=== PATIENT | male | born 1935 | race Caucasian/White ===

== ENCOUNTER 2024-02-06 16:10 | Emergency (ER) | payer MEDICARE, SELFPAY ==
[2024-02-06 16:12] VITALS: BP 163/79; PULSE 84; RESP 18; TEMP 36.2; O2SAT 94; BMI 28.7
--- NOTE | 2024-02-06 16:51 | EKG12_ITS ---
Test Reason : GENERAL Blood Pressure : / mmHG Vent. Rate : 076 BPM Atrial Rate : 076 BPM P-R Int : 230 ms QRS Dur : 102 ms QT Int : 402 ms P-R-T Axes : 056 -43 065 degrees QTc Int : 452 ms Sinus rhythm with 1st degree A-V block Left axis deviation Abnormal ECG Confirmed by Werner Monzon ([id number]), manager editorial ROMINA KIMBALL ([id number]) on 02/07/2024 10:32:05 AM Referred By: Confirmed By:Werner Monzon
--- NOTE | 2024-02-06 16:53 | RAD_ITS ---
INDICATION: sob EXAMINATION/TECHNIQUE: X-RAY - XR Chest 2 Views COMPARISON: FINDINGS: LINES/DEVICES: None. LUNGS: No consolidation, edema or effusion. No pneumothorax. MEDIASTINUM AND CARDIOVASCULAR STRUCTURES: Cardiac silhouette not enlarged. Central airways and mediastinal contour are unremarkable. BONES AND SOFT TISSUES: Unremarkable. RAD/Chest PA and Lateral IMPRESSION: No radiographic evidence of acute cardiopulmonary disease. Electronically Signed: Aroldo Huynh DO at 17:26 EDT ,
--- NOTE | 2024-02-06 16:54 | US_ITS ---
INDICATION: BILATERAL LEG SWELLING EXAMINATION: Ultrasound US Venous Duplex LE Bilat Complete TECHNIQUE: Suggs scale, pulse wave, and color flow Doppler imaging was performed of the lower extremity venous system. The bilateral greater saphenous, common femoral, femoral, and popliteal veins were interrogated. COMPARISON: FINDINGS: There is normal compression, augmentation, and signal throughout the visualized deep lower extremity veins. No mass or fluid collection. US/Venous Duplex Imag/Ravi Extrem IMPRESSION: No sonographic evidence of deep venous thrombosis. Electronically Signed: Aroldo Huynh DO at 17:44 EDT Reading Location ID and State: [facility] / [place] Tel [phone], Service support ,
--- NOTE | 2024-02-06 16:55 | NURSING ---
NO OLD EKGS
[2024-02-06 17:06] LABS: Absolute Lymphocyte Count 2.79 X10^3/uL (0.83-4.51); Absolute Neutrophil Count 3.4 X10^3/uL (2.0-7.7); Basophil# 0.03 X10^3/uL; Basophil% 0.4 % (0-1); Eosinophil# 0.12 X10^3/uL; Eosinophils% 1.8 % (0-5); Hematocrit 49.8 % (40-54); Hemoglobin 16.4 g/dL (13.0-16.5); Lymphocyte # 2.79 X10^3/ul (0.83-4.51); Lymphocyte % 40.7 % (19-41); Mean Corp Hgb Conc 32.9 g/dL (32-36); Mean Corpuscular Hgb 29.4 pg (27.0-32.0); Mean Corpuscular Volume 89.4 fL (80-94); Mean Platelet Vol. 10.7 fl (6.2-12.0); Monocyte# 0.52 X10^3/uL; Monocyte% 7.6 % (0-10); NRBC Flagged by Analyzer 0 % (0-5); Neutrophil # 3.37 X10^3/uL (2.7-7.7); Neutrophil % 49.2 % (47-70); Platelet Count 215 K/mm3 (150-450); RBC Distribution Width CV 13.9 % (11.6-14.6); RBC Distribution Width SD 45.3 fl (35.1-43.9); Red Blood Count 5.57 M/mm3 (4.6-6.2); White Blood Count 6.9 K/mm3 (4.4-11.0)
[2024-02-06 17:27] LABS: Anion Gap 6 (5-15); BUN 20 mg/dL (7-18); BUN/Creat Ratio 12.8 RATIO (10-20); Calcium,Total 9.2 mg/dL (8.5-10.1); Chloride 106 mmol/L (98-107); Creatinine, Serum 1.56 mg/dL (0.70-1.30); EST Glomerular Filtration Rate 45 mL/min (>60); Est Glom Filt Rate - Afr Amer 54 mL/min (>60); Glucose 105 mg/dL (74-106); Potassium 3.5 mmol/L (3.5-5.1); Sodium Level 138 mmol/L (136-145)
[2024-02-06 17:33] LABS: BNP,B-Type NATRIURETIC PEPTIDE 62.3 pg/mL (0-100)
[2024-02-06 18:06] VITALS: BP 154/78; PULSE 77; RESP 19
[2024-02-06 18:22] VITALS: O2SAT 97
[2024-02-06] MEDS: Furosemide 20 MG/2 ML VIAL IV (18:30)
[2024-02-06 18:51] VITALS: BP 169/88; PULSE 78; RESP 18; TEMP 36.6; O2SAT 98
--- NOTE | 2024-02-06 22:02 | EDS_ITS ---
HPI History of Present Illness Chief Complaint: Shortness of Breath Informant: patient Narrative Narrative: To the ED from outpatient image facility for elevated creatinine. Reported creatinine 1.7 he seen PCP office today due to 3 days of leg swelling and dyspne a. Denies orthopnea. Denies cough. He reports CT PE study was ordered by his primary doctors. He denies any recent travel, surgery, immobilizations. No history of PE or DVT. History of kidney stones and polycystic kidney disease. Denies leg pains. [facility] Medical History Neuropathy Kidney stones Kidney disease Gallstones Prediabetes Seasonal allergies Hyperlipemia Hypothyroidism Blepharochalasis Hypertension Home Medications ?Medication ?Instructions ?Recorded ?Last Taken ?Type felodipine 10 mg tablet,extended 10 mg PO DAILY 11/26/20 Unknown History release 24 hr lisinopril 10 mg tablet 10 mg PO DAILY 11/26/20 Unknown History multivitamin 1 tab PO DAILY 11/26/20 Unknown History onabotulinumtoxinA 100 unit 200 unit IM ONCE 11/26/20 Unknown History solution for injection (Botox) polyethylene glycol 3350 17 17 g PO DAILY 11/26/20 Unknown History gram/dose oral powder (Miralax) rosuvastatin 10 mg tablet 10 mg PO DAILY 11/26/20 Unknown History tamsulosin 0.4 mg capsule 0.4 mg PO DAILY 11/26/20 Unknown History furosemide 20 mg tablet mg PO 02/06/24 Unknown History furosemide 20 mg tablet (Lasix) 20 mg PO DAILY #5 tabs 02/06/24 Unknown Rx levothyroxine 75 mcg tablet mcg PO 02/06/24 Unknown History triamcinolone acetonide 0.1 % applic topical 02/06/24 Unknown History topical cream triamcinolone acetonide 0.1 % topical BID 02/06/24 Unknown History topical ointment Allergy/AdvReac Type Severity Reaction Status Date / Time codeine Allergy Severe Diarrhea Verified 02/06/24 16:12 red dye Allergy Intermediate Diarrhea Verified 02/06/24 16:12 Sulfa (Sulfonamide Allergy Intermediate Diarrhea Verified 02/06/24 16:12 Antibiotics) Surgical History History of cholecystectomy History of tonsillectomy Social History Smoking Status: Never smoker alcohol intake: never substance use type: does not use what type of physical activity do you participate in: walking ROS ROS ED Constitutional Constitutional ED: Denies chills, fever(s) or sweats Eyes Eyes: Denies change in vision ENT ENT ED: Denies dysphagia or sore throat Cardiovascular Cardiovascular: Reports leg edema; Denies chest pain, palpitations or racing heartbeat Respiratory/Chest Respiratory/Chest: Reports dyspnea; Denies cough or dyspnea on exertion Gastrointestinal Gastrointestinal: Denies abdominal pain, diarrhea, nausea or vomiting Genitourinary Genitourinary ED: Denies dysuria, hematuria or urinary frequency Musculoskeletal Musculoskeletal: Denies back pain, extremity pain or neck pain Integumentary Denies rash or wounds Neurologic Neurologic: Denies headache(s), paresthesias or weakness EXAM Physical Exam Const Vital Signs: 02/06/24 16:12 02/06/24 18:06 02/06/24 18:51 Temperature 97.2 F L 98 F Temperature Source Temporal Pulse Rate 84 77 78 Respiratory Rate 18 19 H 18 Blood Pressure 163/79 H 154/78 H 169/88 H Blood Pressure Mean 107 103 115 Pulse Ox 94 98 Oxygen Delivery Method Room Air Positive well nourished and well developed General Appearance ED: well developed and NAD HEENT Reports moist mucous membranes normocephalic and atraumatic Eyes EOMs intact bilaterally and conjunctivae normal General Eye ED: Yes normal appearance of both eyes Neck no lymphadenopathy and supple General: Negative for tenderness Chest Wall Chest: Negative for tenderness Resp normal respiratory effort and normal air movement Effort and Inspection: symmetric chest movement; Negative for respiratory distress Cardio regular rate, regular rhythm and no murmurs Peripheral Pulses: pulses 2+ throughout GI normal to inspection, nondistended, normoactive bowel sounds and non-tender Palpation: Negative for guarding or rebound tenderness present Back/Spine no CVA tenderness and no thoracic nor lumbar tenderness Extremity normal to inspection Extremity Narrative: 1+ leg swelling bilaterally. No calf tenderness. General Extremety ED: Yes edema; Negative for tenderness General Extremity: edema Neuro oriented x3 and no sensory deficits noted Sensorium / Orientation: awake and alert Skin no rashes or lesions noted and no wounds MDM MDM MDM Narrative Medical decision making narrative: Interventions / MDM: Differential diagnosis: Peripheral edema, renal insufficiency Diagnosis considered but do not suspect: CHF however BNP normal chest x-ray without effusion. DVT however ultrasounds were negative. PE however no hypoxia or tachycardia. My EKG interpretation: N/A Imaging independently reviewed and interpreted by myself: 2 view chest x-ray: Turbulence of breath radiology shows no acute process. External documents reviewed: N/A Test considered but not ordered:N/A ED course: Vital signs stable nontoxic. Patient no PE risk factors reporting leg swelling with dyspnea. Denies orthopnea. I ordered further labs with a BMP. Two-view chest x-ray ordered ultrasound the legs were ordered. DVT studies negative x-ray negative. Labs with a creatinine 1.56 GFR of the 45. There is no old for comparison. Due to leg swelling avoid fluids. Discussed short course of diuretics with 20 mg given the ED for next few days and monitoring symptoms. Ambulated pulse ox was stable. Will follow-up with PCP to recheck labs. Return precautions. All questions were answered. Re-evaluation: stable Disposition discussed with patient/family/significant other: Patient Case discussed with consulting clinician: N/A This note was generated with [employer] dictation software. It may contain incorrect words, spelling, and punctuation that were not noted in checking the note before signing. Lab Data Attestation: I reviewed the patient's lab results. Labs: Laboratory Results - last 24 hr 02/06/24 16:55 WBC 6.9 RBC 5.57 Hgb 16.4 Hct 49.8 MCV 89.4 MCH 29.4 MCHC 32.9 RDW Std Deviation 45.3 H RDW Coeff of [place] 13.9 Plt Count 215 MPV 10.7 Immature Gran % (Auto) 0.300 Neut % (Auto) 49.2 Lymph % (Auto) 40.7 [place] % (Auto) 7.6 Eos % (Auto) 1.8 Baso % (Auto) 0.4 Absolute Neuts (auto) 3.4 Absolute Lymphs (auto) 2.79 Nucleated RBC % 0 Sodium 138 Potassium 3.5 Chloride 106 Carbon Dioxide 26.0 Anion Gap 6 BUN 20 H Creatinine 1.56 H Estim Creat Clear Calc 38.20 Est GFR (MDRD) Af Amer 54 L Est GFR (MDRD) Non-Af 45 L BUN/Creatinine Ratio 12.8 Glucose 105 Calcium 9.2 B-Natriuretic Peptide 62.3 Radiography Diagnostic Testing: Clinical Impression(s) from Imaging Studies Chest X-Ray 02/06/24 16:53 IMPRESSION: No radiographic evidence of acute cardiopulmonary disease. Electronically Signed: Aroldo Huynh DO at 17:26 EDT , Venous Duplex 02/06/24 16:54 IMPRESSION: No sonographic evidence of deep venous thrombosis. Electronically Signed: Aroldo Huynh at 17:44 EDT , Discharge Plan Triage Chief Complaint: Shortness of Breath Other Complaint: Edema ED Provider: Geovanni Gastelum Dx/Rx/DC Orders Clinical Impression: Edema, peripheral, Dyspnea, Renal insufficiency Instructions: ED Peripheral Edema, Bilateral, ED Renal Insufficiency Prescriptions: New furosemide [Lasix] 20 mg tablet 20 mg PO DAILY Qty: 5 0RF No Action lisinopril 10 mg tablet 10 mg PO DAILY felodipine 10 mg tablet extended release 24 hr 10 mg PO DAILY tamsulosin 0.4 mg capsule 0.4 mg PO DAILY rosuvastatin 10 mg tablet 10 mg PO DAILY polyethylene glycol 3350 [Miralax] 17 gram/dose powder 17 g PO DAILY multivitamin Tablet 1 tab PO DAILY Botox 100 unit recon soln 200 unit IM ONCE Patient Comments: once every 3 months for blepharo spasm triamcinolone acetonide 0.1 % cream topical levothyroxine 75 mcg tablet PO triamcinolone acetonide 0.1 % ointment topical BID furosemide 20 mg tablet PO Primary Care Provider: Abraham Garcia Referrals: Abraham Garcia MD [Primary Care Provider] - 1 Week Activity Restrictions/Additional Instructions: Ultrasound your legs are negative for blood clots. Chest x-ray negative. Your creatinine 1.56 GFR 45. No old for comparison the lab. BNP 63. Use water pill as prescribed. Follow-up with your doctor recheck labs and your leg swelling. Pulse ox stable in ED with ambulation. Print Language: Gibralt[place] Disposition Disposition: Home, Self Care Discharge Date/Time: 02/06/24 18:56
== END 2024-02-06 18:56 | disposition home or self-care (01) ==
PROVIDERS: Emergency Provider Emergency Medicine; PCP Family Medicine; Visit Provider Emergency Medicine
DX: M79.89 Other specified soft tissue disorders (principal); R06.00 Dyspnea, unspecified; N28.9 Disorder of kidney and ureter, unspecified
CPT/HCPCS: 71046; 80048; 83880; 85025; 93005; 93970; 96374; 99284; A4216; J1940